=== PATIENT | female | born 1980 | race Caucasian/White ===

== ENCOUNTER 2019-12-10 20:48 | Emergency (ER) | payer BC, OTHER ==
[~2019-12-10] VITALS: Ht 167.6 cm; Wt 97.0 kg
[~2019-12-10 20:48] MED LIST: ONDA4TAB6 PO
[2019-12-10 21:00] VITALS: BP 145/91
[2019-12-10] MEDS ORDERED: AZIT-63 PO (23:28)
[2019-12-10] MEDS ORDERED: HYDR-4383 PO (23:28)
[2019-12-10] MEDS ORDERED: HYDROcodone/acetaminophen 10/325mg tab PO ONE (23:35)
[2019-12-10] MEDS ORDERED: azithromycin 250mg tablet PO ONE (23:35)
[2019-12-10] MEDS ORDERED: ketorolac tromethamine 15mg/ml inj. IM ONE (23:45)
== END 2019-12-10 23:51 | disposition home or self-care (01) ==
LOC: ER 20:50
DX: R07.81 Pleurodynia (principal); R05 Cough; R11.2 Nausea with vomiting, unspecified; R09.89 Other specified symptoms and signs involving the circulatory and respiratory systems
CPT/HCPCS: 71045; 96372; 99283; J1885

== ENCOUNTER 2019-12-17 09:56 | Emergency (ER) | payer OTHER ==
[~2019-12-17] VITALS: Ht 167.6 cm; Wt 110.0 kg
[~2019-12-17 09:56] MED LIST changes: +AZIT-63 PO; +HYDR-4383 PO
[2019-12-17 10:00] VITALS: BP 191/104
[2019-12-17] MEDS ORDERED: BENZ-16 PO (11:04)
[2019-12-17] MEDS ORDERED: CYCL-1 PO (11:04)
[2019-12-17] MEDS ORDERED: ketorolac trometh. 30mg/ml inj. IM ONE (11:05)
== END 2019-12-17 11:31 | disposition home or self-care (01) ==
LOC: ER 09:56
DX: R07.89 Other chest pain (principal); R50.9 Fever, unspecified; R05 Cough; M54.9 Dorsalgia, unspecified; R11.10 Vomiting, unspecified; Z87.891 Personal history of nicotine dependence; Z98.890 Other specified postprocedural states; Z79.899 Other long term (current) drug therapy
CPT/HCPCS: 96372; 99283; J1885

== ENCOUNTER 2021-07-22 08:44 | Outpatient (CLI) | payer BC ==
[~2021-07-22 08:44] MED LIST changes: -AZIT-63 PO; +CYCL-1 PO
[2021-07-23 15:05] LABS: FSH, SERUM 7.2 mIU/mL (.); LUTEINIZING HORMONE 8.1 mIU/mL (.)
== END 2021-07-23 23:59 | disposition home or self-care (01) ==
LOC: LAB 08:44
PROVIDERS: ATTEND Family Medicine
DX: N95.1 Menopausal and female climacteric states (principal)
CPT/HCPCS: 36415; 83001; 83002; 84402; 84403

== ENCOUNTER 2021-09-12 08:44 | Outpatient (CLI) | payer BC | END 2021-09-12 23:59 | disposition home or self-care (01) | LOC: RAD 08:44 | PROVIDERS: ATTEND Physician Assistant | DX: U07.1 COVID-19 (principal); R06.00 Dyspnea, unspecified | CPT/HCPCS: 71046 ==

== ENCOUNTER 2022-12-29 08:31 | Outpatient (CLI) | payer BC | END 2022-12-29 23:59 | disposition home or self-care (01) | LOC: RAD 08:31 | PROVIDERS: ATTEND Nurse Practitioner Family | DX: Z00.01 Encounter for general adult medical examination with abnormal findings (principal); K76.0 Fatty (change of) liver, not elsewhere classified; R16.0 Hepatomegaly, not elsewhere classified; E78.5 Hyperlipidemia, unspecified; R10.11 Right upper quadrant pain | CPT/HCPCS: 76700 ==

== ENCOUNTER 2023-08-03 14:02 | Emergency (ER) | payer OTHER ==
[~2023-08-03] VITALS: Ht 165.1 cm; Wt 93.6 kg
[2023-08-03 14:20] VITALS: BP 140/79; PULSE 67; RESP 16; TEMP 97.8; O2SAT 95
[2023-08-03] MEDS ORDERED: IBUP-1986 PO (15:57)
[2023-08-03] MEDS ORDERED: ibuprofen tablet 400 MG TABLET PO ONE (16:00)
[2023-08-03] MEDS ORDERED: HYDR-3972 PO (16:27)
== END 2023-08-03 16:34 | disposition home or self-care (01) ==
LOC: ER 14:02
DX: S93.491A Sprain of other ligament of right ankle, initial encounter (principal); X58.XXXA Exposure to other specified factors, initial encounter; Y93.89 Activity, other specified; Y92.89 Other specified places as the place of occurrence of the external cause; Y99.8 Other external cause status
CPT/HCPCS: 73610; 99283; L4360

== ENCOUNTER 2024-07-11 08:58 | Outpatient (CLI) | payer BC ==
[~2024-07-11 08:58] MED LIST changes: +IBUP-1986 PO
[2024-07-11 09:50] LABS: BASOPHILS % (AUTO) 0.4 % (0-1); EOSINOPHILS # (AUTO) 0.1 X10'3 (0-0.9); EOSINOPHILS % (AUTO) 1.1 % (0-6); HEMATOCRIT 42.5 % (35.0-45.0); HEMOGLOBIN 14.2 g/dl (12.0-16.0); LYMPHOCYTES # (AUTO) 3.2 X10'3 (1.1-4.8); LYMPHOCYTES % (AUTO) 31.7 % (21-51); MEAN CORPUSCULAR HEMOGLOBIN 31.2 PG (27.0-31.0); MEAN CORPUSCULAR HGB CONC 33.5 g/dL (33.0-36.5); MEAN CORPUSCULAR VOLUME 93.3 FL (78-98); MEAN PLATELET VOLUME 9.4 FL (7.4-10.4); MONOCYTES # (AUTO) 0.9 X10'3 (0-0.9); MONOCYTES % (AUTO) 8.6 % (2-12); NEUTROPHILS # (AUTO) 5.9 X10'3 (1.8-7.7); NEUTROPHILS % (AUTO) 58.2 % (42-75); PLATELET COUNT 224 X10'3 (140-440); RED BLOOD COUNT 4.56 X10'6 (4.20-5.60); RED CELL DISTRIBUTION WIDTH 13.8 % (11.5-14.5); WHITE BLOOD COUNT 10.1 X10'3 (4.5-11.0)
[2024-07-11 10:00] LABS: HEMOGLOBIN A1C 5.5 % (4.5-6.2)
[2024-07-11 10:27] LABS: ALANINE AMINOTRANSFERASE 23 U/L (12-78); ALBUMIN 3.4 G/DL (3.4-5.0); ALKALINE PHOSPHATASE 58 IU/L (46-116); ANION GAP 7 (8-16); ASPARTATE AMINO TRANSFERASE 17 U/L (10-37); BILIRUBIN,TOTAL 0.5 MG/DL (0.1-1.0); BLOOD UREA NITROGEN 11 MG/DL (7-18); BUN/CREATININE RATIO 13.8 (10.0-20.0); CALCIUM 8.5 MG/DL (8.5-10.1); CHLORIDE 106 MMOL/L (99-107); CHOL/HDL RATIO 3.3 (0.00-4.99); CHOLESTEROL 266 MG/DL (0-200); GLUCOSE 92 MG/DL (70-104); HDL CHOLESTEROL 80 MG/DL (35-60); LDL CHOLESTEROL 148 MG/DL (50-100); POTASSIUM 3.7 MMOL/L (3.5-5.1); SODIUM 138 MMOL/L (135-145); THYROID STIMULATING HORMONE 2.22 ulU/ml (0.34-4.50); TOTAL CARBON DIOXIDE 24.6 MMOL/L (24-32); TOTAL PROTEIN 6.7 G/DL (6.4-8.2); TRIGLYCERIDES 95 MG/DL (20-135); eGFR 78 ML/MIN
[2024-07-13 05:58] LABS: ESTRADIOL 78.7 pg/mL (.); PROGESTERONE 1.7 ng/mL (.); TESTOSTERONE, SERUM 8 ng/dL (4-50); THYROXINE (T4) 6.4 ug/dL (4.5-12.0)
[2024-07-15 11:30] LABS: ESTRONE, SERUM 103 pg/mL (.)
== END 2024-07-11 23:59 | disposition home or self-care (01) ==
LOC: LAB 08:58
PROVIDERS: ATTEND Nurse Practitioner
DX: Z13.220 Encounter for screening for lipoid disorders (principal); E55.9 Vitamin D deficiency, unspecified; F41.1 Generalized anxiety disorder; F32.A Depression, unspecified; F39 Unspecified mood [affective] disorder; F51.01 Primary insomnia; R53.83 Other fatigue
CPT/HCPCS: 36415; 80053; 80061; 82306; 82670; 82679; 83036; 84144; 84402; 84403; 84436; 84443; 85025